=== PATIENT | male | born 1975 | race Caucasian/White ===

== ENCOUNTER 2018-03-23 17:10 | Emergency (ER) | payer OTHER ==
[~2018-03-23] VITALS: Ht 182.9 cm; Wt 79.4 kg
== END 2018-03-23 18:21 | disposition home or self-care (01) ==
LOC: ER 17:10
DX: S90.852A Superficial foreign body, left foot, initial encounter (principal); W45.8XXA Other foreign body or object entering through skin, initial encounter; Y93.89 Activity, other specified; Y92.89 Other specified places as the place of occurrence of the external cause; Y99.8 Other external cause status